=== PATIENT | female | born 1990 | race Caucasian/White ===

== ENCOUNTER 2018-12-30 05:52 | Day surgery (SDC) | payer OTHER ==
[2018-12-29 12:36] VITALS: BMI 23.5
[2018-12-30] MEDS ORDERED: Lidocaine 1% w/Epinephrine 1:200K 30 ML VIAL ONE (06:31)
[2018-12-30 06:43] LABS: #Basophils 0.1 thou/uL (0.0-0.2); #Eosinphils 0.2 thou/uL (0.0-0.7); #Lymphocytes 2.3 thou/uL (1.20-3.40); #Monocytes 0.5 thou/uL (0.11-0.59); #Neutrophils 3.2 thou/uL (1.40-6.50); %Basophils 1.3 % (0.0-1.0); %Eosinophils 3.6 % (0.0-10.0); %Monocytes 8.5 % (0.0-10.0); %Neutrophils 50.6 % (42.0-75.0); Hemoglobin 14.5 g/dL (12.0-16.0); Mean Corpuscular HGB CONC 32.3 g/dL (32.0-36.0); Mean Corpuscular Hemoglobin 29.9 pg (27.0-31.0); Mean Corpuscular Volume 92.6 fL (78.0-98.0); Mean Platelet Volume 8.4 fL (7.4-10.4); Platelet Count 236 thou/uL (130-400); RBC Distribution Width 11.8 % (11.5-14.5); Red Blood Cell (RBC) Count 4.84 mill/uL (4.20-5.40); White Blood Cell (WBC) Count 6.3 thou/uL (4.8-10.8)
[2018-12-30] MEDS ORDERED: Fentanyl 100 MCG/2 ML VIAL ONE (06:58)
[2018-12-30] MEDS ORDERED: Promethazine HCl 25 MG/ML VIAL ONE (08:19)
[2018-12-30] MEDS ORDERED: Midazolam HCl 2 mg/2 ml Vial ONE (08:20)
--- NOTE | 2018-12-30 10:54 | OP ---
DATE OF PROCEDURE: 12/30/2018 PREOPERATIVE DIAGNOSES: 1. Left cubital tunnel. 2. Left carpal tunnel. PROCEDURES PERFORMED: 1. Open cubital tunnel release. 2. Open carpal tunnel release. 3. Long-arm splint. ANESTHESIA: LMA with 20 mL of lidocaine with epi, 10 mL in wrist, 10 mL in elbow. ESTIMATED BLOOD LOSS: Less than 20 mL. TOURNIQUET TIME: 35 minutes at 250 mmHg. ANTIBIOTICS: Ancef. COMPLICATIONS: None. HISTORY OF PRESENT ILLNESS: Barb is a 28-year-old female, who presents to me with nerve conductions consist with cubital tunnel as well as symptoms consistent with carpal tunnel. The patient uses computer majority of the day, continued to have some escalating pain, which she desired to have treated surgically. I discussed the risks and benefits of the surgery to include pain, scar, bleeding, infection, damage to vital structures, decreased range of motion or strength, nonunion, malunion, continued pain unrelieved by surgery, damage to vital structures, loss of life or limb. The patient understood the risks and benefits and elected to proceed. DESCRIPTION OF PROCEDURE: Time-out was performed designating the patient's left upper extremity as the operative site, based on site, consents, and marking. Procedure #1: After time-out was performed, the patient had Esmarch tourniquet applied up to 35 minutes. I made an incision just over the dorsal aspect of the medial epicondyle down through skin. I found on the ulnar side of the triceps fascia, the nerve which was de-roofed, I took from lateral to medial Zavala fascia to create a sleeve to help it attached, create a sling to keep the nerve in place under the skin. I followed the nerve distally to the forearm fascia with scissors and knife, came down on the fascial plane and then with scissors, bluntly, dissected free on the muscle and moved distally, and then proximally along the triceps, bluntly dissecting both with my finger as well as scissors to ensure no adhesions. The nerve was freely mobile, removed from the adhesions, felt like it was completely decompressed. I then took the Zavala ligament and sewed it with 0 Vicryl to the subcutaneous fascia, pulling the skin over, so that it had a nice closure. Using this as a sling to maintain the nerve, I sewed subcu 2-0 and 3-0 nylon and horizontal mattress secondary to the wrist. I made an incision off the radial border of the fourth metacarpal, down through from Nagel cardinal line. I made an incision down through skin. I came down to the palmar fascia, placed a hemostat underneath the transverse carpal ligament, I was near, but just medial to the hook, came down through the fascia, bluntly dissecting down, found the patient's transverse carpal ligament and completely released it, was happy with the overall release. I then washed and closed with 4-0 nylon and injected 10 mL of lidocaine with epi there, then went back to the elbow, injected 10 mL of lidocaine. The patient was placed in a long-arm splint. She will follow up with me in about 10 to 12 days for suture removal. Job ID: [id number]
== END 2018-12-30 10:45 | disposition home or self-care (01) ==
LOC: SDC 05:52
PROVIDERS: ATTEND Orthopaedic Surgery
PROC: 01N50ZZ Release Median Nerve, Open Approach (ICD-10-PCS; principal; 2018-12-30)
PROC: 01N40ZZ Release Ulnar Nerve, Open Approach (ICD-10-PCS; principal; 2018-12-30)
DX: G56.22 Lesion of ulnar nerve, left upper limb (principal); G56.02 Carpal tunnel syndrome, left upper limb
CPT/HCPCS: 85025; J0690; J2250; J2550; J3010

== ENCOUNTER 2019-11-24 20:14 | Emergency (ER) | payer OTHER ==
[2019-11-24 20:44] LABS: Bilirubin Negative (Negative); Blood, Urine 2+ (Negative); Clarity Clear (Clear); Glucose, Urine (Dipstick) Normal (Negative); Leukocyte Negative Leu/uL (Negative); Nitrite Negative (Negative); Protein, Urine (Dipstick) Negative (Neg-Trace); RBC/HPF 0-3 HPF (0-3); Squamous Epithelial 0-3 HPF (0-3); Urobilinogen Normal mg/dL (Less than 2); WBC/HPF 0-3 HPF (0-3)
[2019-11-24 20:47] LABS: Bacteria/HPF 1+ HPF (None Seen)
[2019-11-24 20:50] LABS: #Basophils 0.1 thou/uL (0.0-0.2); #Eosinphils 0.2 thou/uL (0.0-0.7); #Lymphocytes 3.2 thou/uL (1.20-3.40); #Monocytes 0.7 thou/uL (0.11-0.59); %Basophils 1.2 % (0.0-1.0); %Eosinophils 2.3 % (0.0-10.0); %Lymphocytes 38.9 % (21.0-51.0); %Monocytes 8.7 % (0.0-10.0); Hemoglobin 13.9 g/dL (12.0-16.0); Mean Corpuscular HGB CONC 34.7 g/dL (32.0-36.0); Mean Corpuscular Hemoglobin 31.4 pg (27.0-31.0); Mean Corpuscular Volume 90.7 fL (78.0-98.0); Platelet Count 248 thou/uL (130-400); RBC Distribution Width 11.6 % (11.5-14.5); Red Blood Cell (RBC) Count 4.43 mill/uL (4.20-5.40); White Blood Cell (WBC) Count 8.2 thou/uL (4.8-10.8)
--- NOTE | 2019-11-24 21:26 | ULT ---
ULTRASOUND PELVIC DOPPLER: 11/24/19 HISTORY: Pain, bleeding. COMPARISON: None. FINDINGS: Real time murillo scale, color Doppler and spectral analysis of the pelvis was performed transabdominal approach. There is an intrauterine gestational sac with a yolk sac and pole with heart rate documented at 133 beats per minute. There is adequate flow to the right ovary with a corpus luteum. The left ovar y has adequate vascular flow. There is a moderate sized subchorionic hemorrhage. [place]-rump length is 0.91 cm, 6 weeks,6 day. Gestational sac diameter is 1.1 cm, 6 week, 0 day. [place] ultrasound age of 6 week, 3 day. Estimated date of delivery 07/16/2020. IMPRESSION: Normal single viable intrauterine with moderate sized subchorionic hemorrhage. POS: HOME
[2019-11-29 21:11] LABS: Chlamydia by PCR Not Detected (NotDetected); GC by PCR Not Detected (NotDetected)
== END 2019-11-24 21:27 | disposition home or self-care (01) ==
LOC: ERS 20:14
DX: O20.8 Other hemorrhage in early pregnancy (principal); O99.011 Anemia complicating pregnancy, first trimester; O99.341 Other mental disorders complicating pregnancy, first trimester; F32.9 Major depressive disorder, single episode, unspecified; Z3A.08 8 weeks gestation of pregnancy
CPT/HCPCS: 36415; 76856; 81003; 81015; 84702; 85025; 86900; 86901; 87480; 87491; 87510; 87591; 87660; 93976